=== PATIENT | female | born 1990 | race Caucasian/White ===

== ENCOUNTER 2020-03-14 14:35 | Emergency (ER) | payer BC, SELFPAY ==
[2020-03-14 14:40] VITALS: BP 124/63; PULSE 89; RESP 16; TEMP 36.8; O2SAT 99; BMI 37.5
--- NOTE | 2020-03-14 15:11 | HMH.EDUTC ---
[facility] [place] Clinical Impression: Dog bite Qualifiers: Encounter type: initial encounter Qualified Code(s): W54.0XXA - Bitten by dog, initial encounter Disposition: Home, Self-Care Condition on Discharge: Good Instructions: DI for Dog Bite, DI for Animal Bites, Amoxicillin and Clavulanic Acid Additional Instructions: Keep wound area clean and dry *Watch area for signs of infection including but not limited too redness, drainage, swelling, streaks etc if seen follow up with Family doctor immediate Return if needed Follow up with Family Doctor if needed Straight to ER if any life threatening symptoms Prescriptions: Amoxicillin/Potassium Clav [Augmentin 875-125 Tablet] 1 tab PO Q12H 7 Days #14 tab Prescription Printed Referrals: Kiel Harden MD [Primary Care Provider] - As needed Time of Disposition: 15:26 Medical Decision Making - Dylon Inquiry Pt receiving controlled substance: No Dylon was queried for this patient: No Vital Signs: 03/14/20 14:40 Temperature 98.3 F Temperature Source Oral Pulse Rate [Left] 89 Respiratory Rate 16 Blood Pressure [Right Arm] 124/63 Blood Pressure Mean [Right Arm] 83 Blood Pressure Source [Right Arm] Automatic Cuff Blood Pressure Position [Right Arm] Sitting 02 Sat by Pulse Oximetry 99 Oxygen Delivery Method Room Air Medical Decision Narrative: Discussed injections for possible Rabies exposure with patient and patient declined series of injections at this time, Reports that she will discuss with neighbor about quarantining the dog and watching it for 10 days, Patient educated that small puncture wound on hand is left open due to contaminated bite and importance of keeping wound clean and oral antibiotics [facility] [place] - General Stated complaint: dog bite Time Seen by Provider: 03/14/20 15:11 Mode of Arrival: Ambulatory Source of Information: Patient Limitations: No Limitations Description of Symptoms (Recalled from Triage Doc. by RN): Dog bite left hand HEENT Symptoms (Recalled from RN notes): No Resp Symptoms (Recalled from RN notes): No Skin Symptoms (Recalled from RN notes): Yes MS Symptoms (Recalled from RN notes): No Functional Status (Recalled from RN notes): stable - History of Present Illness Provider Complaint: Patient states that earlier her neighbors dog bite her on her left hand States that she isnt sure about the dogs vaccines States that she immediately cleaned the wound area and applied antibiotic ointment States that she is unsure when her last tetanus was and came in to see if she needed antibiotics to help prevent infection - Related Data Previous Rx's Medication Instructions Recorded Amoxicillin/Potassium Clav 1 tab PO Q12H 7 Days #14 tab 03/14/20 [Augmentin 875-125 Tablet] Allergies Allergy/AdvReac Type Severity Reaction Status Date / Time No Known Allergies Allergy Unverified 07/07/17 14:48 - Worker's Comp Is this a Worker's Comp case?: No Is this an [facility] Worker's Comp?: No Is this a [facility] Worker's Comp?: No [facility] History - Hepatitis A Screen Drug use history?: No High risk sexual behaviors?: No History of sexually transmitted infection?: No Currently employed?: No Childcare worker?: No Do you have indoor plumbing?: Yes Do you have electricity?: Yes Attestation statement:: This patient has been screened for Hepatitis A risk factors. I have reviewed the patient's past medical history: Yes Medical History: Denies:: Cancer, Diabetes Mellitus Type 1, Diabetes Mellitus Type 2, Internal Pacemaker, MRSA Other Surgeries: No: Pacemaker Amputation: No Fractures: No - Social History Alcohol Intake: never Occupational Status: employed Housing: house Household Members: family ROS Obtained: Yes All systems reviewed & no additional complaints, Yes Systems reviewed as appropriate & no additional complaints - Constitutional Constitutional: Reports system reviewed and no additional complaints, except as docu - E
[2020-03-14 15:41] VITALS: BP 124/63; PULSE 89; RESP 16; TEMP 36.8; O2SAT 99
== END 2020-03-14 15:42 | disposition home or self-care (01) ==
PROVIDERS: Emergency Provider Nurse Practitioner; PCP Internal Medicine Adolescent Medicine
DX: S61.432A Puncture wound without foreign body of left hand, initial encounter (principal); W54.0XXA Bitten by dog, initial encounter; Z23 Encounter for immunization
CPT/HCPCS: 90471; 90715; 96372; 99201

== ENCOUNTER → 2022-04-10 13:28 | Outpatient (CLI) | payer BC, SELFPAY ==
--- NOTE | 2022-04-10 13:34 | US_ITS ---
FINAL REPORT CLINICAL HISTORY: MASS OF RIGHT LOWER LAG FINDINGS: US EXTREMITY, NONVASCULAR, LIMITED, ANATOMIC SPECIFIC Limited sonographic images were obtained of the soft tissues of the right knee. Along the lateral border is a predominately cystic ovoid nodule measuring 1.9 cm. This demonstrates minimal internal nodularity and vascularity. IMPRESSION: 1.9 cm nodule with minimal internal nodularity and vascularity. Recommend correlation with MRI. Reviewed, Interpreted and Dictated by Julius Hernandez MD Transcribed by Osmar Alamo Authenticated and . [facility]
== END ==
LOC: RAD 13:29
PROVIDERS: PCP Internal Medicine Adolescent Medicine; Visit Provider Nurse Practitioner Family
DX: R22.41 Localized swelling, mass and lump, right lower limb (principal)
CPT/HCPCS: 76882

== ENCOUNTER → 2022-04-21 14:52 | Outpatient (CLI) | payer BC, SELFPAY ==
--- NOTE | 2022-04-21 14:56 | MR_ITS ---
FINAL REPORT CLINICAL HISTORY: MASS OF RIGHT LOWER LEG. lump on lower leg x1 year. put marker on leg. 17ml prohance given. FINDINGS: Multiplanar MR imaging of the right lower leg was performed with and without contrast. There is no evidence of fracture, bone bruise or marrow edema. No bony mass is identified. The musculature is intact. No localized soft tissue inflammation is identified. There is an 18 mm lobulated, well-circumscribed nodule in the lateral subcutaneous tissues of the proximal lower leg. This demonstrates mild peripheral enhancement and appears to represent fluid signal. IMPRESSION: Lobular well-circumscribed nodule at the area of interest favors a cyst over cystic neoplasm. Reviewed, Interpreted and Dictated by Felipe Washington III, MD Transcribed by Osmar Alamo Authenticated and [facility]
== END ==
LOC: RAD 14:53
PROVIDERS: PCP Internal Medicine Adolescent Medicine; Visit Provider Nurse Practitioner Family
DX: R22.41 Localized swelling, mass and lump, right lower limb (principal)
CPT/HCPCS: 73720; A9576

== ENCOUNTER 2023-10-16 07:53 | Outpatient (CLI) | payer BC, SELFPAY ==
[2023-10-16 08:10] LABS: Basophils # 0.1 K/mm3 (0-0.2); Basophils % 1.1 % (0.1-2.0); Eosinophils # 0.1 K/mm3 (0.0-0.4); Eosinophils % 1.2 % (0.1-12.0); Hemoglobin 14.2 g/dL (12.2-16.2); Lymphocytes # 1.6 K/mm3 (0.7-4.5); Lymphocytes % 30.3 % (10-50); Mean Corpuscular HGB Conc 32.9 g/dL (31.8-35.4); Mean Corpuscular Hemoglobin 30.5 pg (27.0-31.2); Mean Corpuscular Volume 92.8 fl (81-99); Mean Platelet Volume 7.5 fl (7.4-10.4); Monocytes # 0.3 K/mm3 (0.1-1.0); Monocytes % 6.2 % (1.7-9.3); Neutrophils # 3.1 K/mm3 (1.8-7.8); Neutrophils % 61.2 % (37.0-80.0); Platelet Count 311 K/mm3 (142-424); Red Blood Count 4.64 M/mm3 (4.20-5.40); Red Cell Distribution Width 12.4 % (11.5-17.5); White Blood Count 5.1 K/mm3 (4.8-10.8)
[2023-10-16 08:56] LABS: Alanine Aminotransferase 18 U/L (12-78); Albumin Level 4.1 g/dl (3.5-5.0); Albumin/Globulin Ratio 1.6 (1.1-1.8); Alkaline Phosphatase 72 U/L (38-126); Anion Gap 8.9 mEq/L (5-15); Aspartate Amino Transferase 25 U/L (14-36); Bilirubin,Total 0.4 mg/dl (0.2-1.3); Blood Urea Nitrogen 13 mg/dl (7-17); Calcium 9.3 mg/dl (8.4-10.2); Carbon Dioxide 28 mmol/L (22.0-30.0); Chloride 107 mmol/L (98-107); Cholesterol 193 mg/dl (140-200); Estimated Glomerular Filt Rate 96 ml/min (>60); GFR (African American) 116 ML/MIN (>60); Globulin 2.6 g/dL (1.3-3.2); Glucose 101 mg/dl (74-100); HDL Cholesterol 32 mg/dl (40-60); Potassium 3.9 mmoL/L (3.5-5.1); Sodium 140 mmol/L (136-145); Total Protein,Serum 6.7 g/dl (6.3-8.2); Triglycerides 79 mg/dl (30-150); VLDL Cholesterol 16 mg/dL (0-40)
[2023-10-16 09:07] LABS: Direct LDL Cholesterol 118.36 mg/dL (100-129)
[2023-10-16 09:26] LABS: Thyroid Stimulating Hormone 1.48 uIU/mL (0.465-4.68)
[2023-10-16 09:45] LABS: Vitamin B12 288 pg/mL (239-931)
== END 2023-10-16 23:59 ==
LOC: LAB 07:53
PROVIDERS: PCP Internal Medicine Adolescent Medicine; Visit Provider Nurse Practitioner Family
DX: R73.09 Other abnormal glucose (principal); R53.83 Other fatigue; E55.9 Vitamin D deficiency, unspecified; Z79.899 Other long term (current) drug therapy
CPT/HCPCS: 36415; 80053; 80061; 82306; 82607; 84443; 85025

== ENCOUNTER 2023-10-22 13:18 | Emergency (ER) | payer BC, SELFPAY ==
[2023-10-22 13:40] VITALS: BP 124/86; PULSE 96; RESP 19; TEMP 36.9; O2SAT 98; BMI 34.2
--- NOTE | 2023-10-22 13:52 | ED_ITS ---
Discharge Plan Disposition Patient Disposition: Home, Self-Care Condition: Good Prescriptions Prescriptions: New amoxicillin 875 mg tablet 875 mg PO Q12H 10 Days Qty: 20 0RF ondansetron 4 mg tablet,disintegrating 4 mg PO Q8H PRN (Reason: nausea and vomiting) Qty: 10 0RF No Action buspirone 5 mg tablet 5 mg PO BID Patient Comments: TAKE 1 TABLET BY MOUTH TWICE DAILY bupropion HCl 150 mg tablet sustained-release 12 hr 150 mg PO BID Patient Comments: TAKE 1 TABLET BY MOUTH TWICE DAILY cyanocobalamin (vitamin B-12) 1,000 mcg/mL solution 1,000 mcg IM WEEKLY Patient Comments: USE DIRECTED IN THE MUSCLE ONCE WEEKLY Referrals Follow up/Referrals: Kiel Harden MD [Primary Care Provider] - See instructions Activity Restrictions/Add. Instructions Additional Instructions/Restrictions: *Monitor Temp, Over the counter Motrin or Tylenol as directed/as needed Tylenol every 4 hours and Motrin every 6 hours (as long as your family doctor has told you that you can take it) for fever or pain. and straight to ER if unable to lower temp less than 101.0 after medication given *Warm salt water gargles may help to soothe the throat *Throat Lozenges? *Warm fluids like tea with honey may help to soothe the throat? *Sleep elevated *Humidifier/Vaporizer *Take medication as prescribed and drink plenty of fluids Follow up IMMEDIATELY for new or worsening symptoms or no Noticeable improvement over the next 48-72 hours. 911 for difficulty breathing or swallowing Clinical Impressions Clinical Impression: Otitis media Instructions Patient Instructions: Middle Ear Infection, Amoxicillin Discharge ED Provider: Leslye Vázquez [facility] [place] HPI General Stated complaint: body aches,fever, cough Mode of Arrival: Ambulatory Source of Information: Patient Limitations: No Limitations Time Seen by Provider: 10/22/23 13:54 Description of Symptoms (Recalled from Triage Doc. by RN): PATIENT C/O COUGH, FEVER, VOMITING, EAR ACHE AND HEADACHE SINCE YESTERDAY HEENT Symptoms (Recalled from RN notes): Yes Resp Symptoms (Recalled from RN notes): Yes Skin Symptoms (Recalled from RN notes): No MS Symptoms (Recalled from RN notes): No Functional Status (Recalled from RN notes): WNL History of Present Illness Provider Complaint: Patient states that she has been having pain and pressure in her right ear and yesterday she started with headache, cough upset stomach and fever States today she wasnt feeling any better so she came in Related Data Home Medications Medication Instructions Recorded Confirmed bupropion HCl 150 mg tablet,12 hr 150 mg PO BID 10/22/23 10/22/23 sustained-release buspirone 5 mg tablet 5 mg PO BID 10/22/23 10/22/23 cyanocobalamin (vitamin B-12) 1,000 mcg IM WEEKLY 10/22/23 10/22/23 1,000 mcg/mL injection solution Previous Rx's Medication Instructions Recorded amoxicillin 875 mg tablet 875 mg PO Q12H 10 days #20 tabs 10/22/23 ondansetron 4 mg disintegrating 4 mg PO Q8H PRN nausea and 10/22/23 tablet vomiting #10 tabs Allergies Allergy/AdvReac Type Severity Reaction Status Date / Time No Known Allergies Allergy Verified 10/22/23 13:51 Worker's Comp Is this a Worker's Comp case?: No [facility] Disclaimer: The information contained in this section may have been updated after the patient was seen, as this information can be updated by other users. Medical History (Updated 10/22/23 @ 14:07 by Leslye Vázquez APRN) Depression Anxiety Urinary tract infection Migraine Social History Smoking Status: Unknown if ever smoked second hand exposure: No alcohol intake: never current occupational status: employed Travel in the last 8 weeks: None household members: family housing: house current occupational exposures/hazards: No caffeine: Yes ROS Obtained: Yes All systems reviewed & no additional complaints except as documented and Yes Systems reviewed as appropriate & no additional complaints except as documented Constitutional Constitutional: Reports system reviewed and no additional complaints, except as documented, Reports as per HPI, Reports body ache, Reports fever(s) and Reports headache(s) ENT Ears, Nose, Mouth, and Throat: Reports system reviewed and no additional complaints, except as documented, Reports as per HPI, Reports otalgia, Reports headache(s) and Reports nasal congestion Cardiovascular Cardiovascular: Reports system reviewed and no additional complaints, except as documented and Reports as per HPI Respiratory Respiratory: Reports system reviewed and no additional complaints, except as documented, Reports as per HPI and Reports cough Gastrointestinal Gastrointestingal: Reports system reviewed and no additional complaints, except as documented, as per HPI, nausea and vomiting Genitourinary Female Genitourinary: Reports system reviewed and no additional complaints, except as documented and Reports as per HPI Neurologic Neurologic: Reports headache(s) Physical Exam General General appearance: alert and in no apparent distress ENT ENT exam: Present mucous membranes moist Expanded ENT Exam TM/Canal exam: Right TM: erythema and bulging Nose exam: Absent sinus tenderness Throat exam: Present normal inspection Respiratory Respiratory exam: Present normal lung sounds bilaterally; Absent respiratory distress or wheezes Cardiovascular Cardiovascular exam: Present regular rate, normal rhythm and normal heart sounds Neurological Exam Neurological exam: Present alert, oriented X3 and normal gait Medical Decision Making Dylon Inquiry Pt receiving controlled substance: No Dylon was queried for this patient: No Vital Signs: 10/22/23 13:40 Temperature 98.5 F Temperature Source Oral Pulse Rate [Left Brachial] 96 H Respiratory Rate 19 Blood Pressure [Left Arm] 124/86 Blood Pressure Mean [Left Arm] 98 Blood Pressure Source [Left Arm] Automatic Cuff Blood Pressure Position [Left Arm] Sitting 02 Sat by Pulse Oximetry 98 Oxygen Delivery Method Room Air Lab Data Lab results reviewed: Yes I reviewed the patient's lab results.
[2023-10-22 14:02] LABS: UTC Influenza A Antigen Negative (Negative); UTC Influenza B Antigen Negative (Negative)
[2023-10-22 14:04] VITALS: BP 124/86; PULSE 96; RESP 19; TEMP 36.9; O2SAT 98
== END 2023-10-22 14:14 | disposition home or self-care (01) ==
PROVIDERS: Emergency Provider Nurse Practitioner; PCP Internal Medicine Adolescent Medicine
DX: H66.91 Otitis media, unspecified, right ear (principal); R51.9 Headache, unspecified; R05.9 Cough, unspecified; R11.0 Nausea; R50.9 Fever, unspecified
CPT/HCPCS: 87804; 99204; 99212; G0463

== ENCOUNTER 2025-04-30 17:49 | Emergency (ER) | payer BC, SELFPAY ==
--- OUTSIDE RECORDS SUMMARY | 2005-11-19 | XMS_ITS | Encounter Summary ---
Author Organization [facility] Address [address] [place] [address] Care Team Providers Care Team Truck Driver Name Role Phone Unavailable Primary Care Provider Unavailabl e Encounter Details Date Type Department Care Team (Late st Contact Info) Description 11/19/[address] [facility] Division of Pediatric General and Thoracic Surgery [address] [place] [phone] Social History Tobacco Use Types Packs/Day Years Used Date Smoking Tobacco: Never Assessed Comments Unknown Sex and Gender Information Value Date Recorded Sex Assigned at Not on file Legal Sex Female 5:18 AM EST Gender Identity Not on file Sexual Orientation Not on file documented as of this encounter Plan of Treatment Not on file documented as of this encounter Visit Diagnoses Not on filedocumented in this encounter
[2025-04-30] VITALS (8 sets, daily range): BP systolic 98–133; BP diastolic 48–88; PULSE 74–94; RESP 18–20; TEMP 36.7–36.9; O2SAT 95–100; BMI 34.7
--- OUTSIDE RECORDS SUMMARY | 2025-04-30 17:56 | XMS_ITS | Clinical Summary ---
Author Organization [facility] Address [address] [place] [id number] Care Team Providers Care Aircraft Structural Repairer Name Role Phone Unavailable Primary Care Provider Unavailabl e Source Comments [facility] is fully rolled out with thefollowing exceptions:General Clinical Research [facility] Social History Tobacco Use Types Packs/Day Years Used Date Smoking Tobacco: Never Assessed Comments Unknown Sex and Gender Information Value Date Recorded Sex Assigned at Not on file Legal Sex Female 5:18 AM EST Gender Identity Not on file Sexual Orientation Not on file Plan of Treatment Health Maintenance Due Date Last Done Comments MMR IMMUNIZATION (1 of 1 - S tandard series) 1990 DTAP/Tdap/Td IMMUNIZATION (1 - Tdap) 01/05/1996 VARICELLA IMMUNIZATION (1 of 2 - 13+ 2-dose series) 2002 HEPATITIS B IMMUNIZATION (1 of 3 - 19+ 3-dose series) 01/05/2008 HPV IMMUNIZATION (1 - 3-dose SCDM series) 01/05/2016 AMB SEASONAL FLU VACCINE (#1) 03/20/2025 COVID-19 Vaccine ( - 2023-2 5 season) 2025 HIB IMMUNIZATION Aged Out No longer e ligible based on patient's age to complete this topic IPV IMMUNIZATION Aged Out No longer e ligible based on patient's age to complete this topic MCV4 IMMUNIZATION Aged Out No longer eligible based on patient's age to complete this topic MENINGOCOCCAL B VACCINE Aged Out No l onger eligible based on patient's age to complete this topic PNEUMOCOCCAL IMMUNIZATION Aged Out No longer eligible based on patient's age to complete this topic Respiratory Syncytial Virus (RSV) <20mo Aged Out No longer eligible b ased on patient's age to complete this topic
--- OUTSIDE RECORDS SUMMARY | 2025-04-30 17:56 | XMS_ITS | Clinical Summary ---
Author Organization [facility] Address [address] [place] [id number] Care Team Providers Care Skip Load Driver Name Role Phone Kiel Harden MD Primary Care Provider [phone] Allergies No known active allergies Medications Vit-Fe Fumarate-FA ( 27-1) 27-1 MG tablet tablet Take by mouth daily. Active ibuprofen (ADVIL,MOTRIN) 600 MG tablet Take 1 tablet by mouth every 6 (six) hours as needed for mild pain (1-3). 30 tablet 2 03/18/2016 Active Active Problems Problem Noted Date Diagnosed Date Normal labor 03/16/2016 Social History Tobacco Use Types Packs/Day Years Used Date Smoking Tobacco: Never Alcohol Use Standard Drinks/Week Comments No 0 (1 standard drink = 0.6 oz pur e alcohol) Abuse Screen Answer Date Recorded Unsafe at Home or Work/School Not on file Feels Threatened by Someone? Not on file 03/2023 Does Anyone Keep You from Co ntacting Others or Doint Things Outside the Home? Not on file 04/27/2023 Physical Sign of Abuse Present Not on file 1 Housing Stability Answer Date Recorded Current Living Arrangements Not on file 03/2023 Potentially Unsafe Housing Conditions Not on ron e 04/27/2023 Family and Community Support Answer Param e Recorded Help with Day-to-Day Activities Not on file 04/27/2023 Lonely or Isolated Not on file 04/27/2023 Employment Answer Date Recorded Do you want help finding or keeping work or a terri b? Not on file 04/27/2023 Disabilities Answer Date Recorded Concentrating, Remembering, or Making Decisions Difficulty Not on file 04/27/2023 Doing Errands Independently Difficulty Not on fi le 04/27/2023 Education Answer Date Recorded Help with school or training? Not on file Preferred Language Not on file 04/27/2023 Comments No Sex and Gender Information Value Date Recorded Sex Assigned at Not on file Legal Sex Female 12:45 PM EDT Gender Identity Not on file Sexual Orientation Not on file Last Filed Vital Signs Vital Sign Reading Time Taken Comments Blood Pressure 118/82 03/18/2016 8:00 AM EDT Pulse 82 03/18/2016 8:00 AM EDT Temperature 37.1 C (98.8 F) 03/18/2016 8:00 AM EDT Respiratory Rate 20 03/18/2016 8:00 AM EDT Oxygen Saturation - - Inhaled Oxygen Concentration - - Weight 98 kg (216 lb) 03/13/2016 11:35 PM EDT Height 154.9 cm (5' 1 ) 03/13/2016 11:35 PM EDT Body Mass Index 40.81 03/13/2016 11:35 PM EDT Plan of Treatment Health Maintenance Due Date Last Done Comments ANNUAL PHYSICAL 1989 Annual Gynecologic Pelvic an d Breast Exam 1989 HEPATITIS C SCREENING 1989 TDAP/TD VACCINES (1 - Tdap) 01/05/2008 INFLUENZA VACCINE 02/17/2025 Pneumococcal Vaccine 0-49 Aged Out No longer eligible based on patient's age to complete this topic Insurance [facility] Advance Directives * Full Code (Latest Code Status on File) Date Activated Date Inactivated Comments 03/16/2016 8:59 PM 03/18/2016 4:17 PM * Full Code Date Activated Date Inactivated Comments 03/16/2016 8:17 AM 03/16/2016 8:59 PM Care Teams Skip Load Driver Relationship Specialty Start Date End Date Kiel Harden MD [address] [facility] [address] [facility] [place] [id number] PCP - General Adolescent Medicine 03/05/16
--- OUTSIDE RECORDS SUMMARY | 2025-04-30 17:56 | XMS_ITS | Clinical Summary ---
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 Social History Tobacco Use Types Packs/Day Years Used Date Smoking Tobacco: Never Assessed Comments Unknown Sex and Gender Information Value Date Recorded Sex Assigned at Not on file Legal Sex Female 6:23 PM EDT Gender Identity Not on file Sexual Orientation Not on file Plan of Treatment Health Maintenance Due Date Last Done Comments [facility]-Depression Screening 1989 [facility]-HIV Screening 1989 [facility]-Hepatitis C Screening 1989 [facility]-Infant/Child/Adol SDOH Screenings 1989 [facility]-Varicella Vaccines (1 of 2 - 13+ 2-dose series) 2002 [facility]- SDOH Screenings 2007 [facility]-Adult SDOH Screenings 2007 [facility]-Hepatitis B Vaccines (1 of 3 - 19+ 3-dose series) 01/05/2008 [facility]-Pap Smear 2010 HPV Vaccines (1 - 3-dose SCDM series) 01/05/2016 [facility]-Cervical Cancer Screening 2019 [facility]-HPV/Cotest 2019 [id number] Vaccine ( season) 2025 07/15/2021, 09/12/2020, 08/15/2020 [facility]-Influenza Vaccine (#1) 03/20/202505/30, 04/27/2018, 03/14/2016 [facility]-DTaP,Tdap,and Td Vaccines (3 - Td or Tdap) 03/14/2030 03/14/2020, 03/14/2016 [facility]-Zoster Vaccines (1 of 2) 2039 [facility]-Hepatitis A Vaccines Aged Out 06/25/2018 No longer eligible based on patient's age to complete this topic [facility]-HIB Vaccines Aged Out No longer e ligible based on patient's age to complete this topic [facility]-IPV Vaccines Aged Out No longer e ligible based on patient's age to complete this topic [facility]-Pneumococcal Vaccine: Pediatrics (0 to 5 Years) and At-Risk Patients (6 to 49 Years) Aged Out No longer eligible b ased on patient's age to complete this topic [facility]-Rotavirus Vaccines Aged Out No lo nger eligible based on patient's age to complete this topic
--- OUTSIDE RECORDS SUMMARY | 2025-04-30 17:56 | XMS_ITS | Clinical Summary ---
Author Organization [facility] Address [address] [place] [phone] Phone Care Team Providers Care Supervisor Chemical Name Role Phone Unavailable Primary Care Provider Unavailabl e Social History Tobacco Use Types Packs/Day Years Used Date Smoking Tobacco: Never Assessed Comments Unknown Sex and Gender Information Value Date Recorded Sex Assigned at Not on file Legal Sex Female 7:25 AM EDT Gender Identity Not on file Sexual Orientation Not on file Plan of Treatment Health Maintenance Due Date Last Done Comments Annual Wellness Exam 01/05/1992 DTaP/TDaP/Td (1 - Tdap) 01/05/2008 Hepatitis B Vaccine (1 of 3 - 19+ 3-dose series) 01/05/2008 Cervical Cancer Screening 2010 Pap Smear 2010 HPV/Pap Cotest 2019 COVID-19 Vaccine ( - 2023-2 5 season) 2025 Influenza Vaccine (#1) 2025 Meningococcal B Vaccine Aged Out No l onger eligible based on patient's age to complete this topic Pneumococcal Vaccine 0-49 Aged Out No longer eligible based on patient's age to complete this topic Insurance [facility]
--- OUTSIDE RECORDS SUMMARY | 2025-04-30 17:56 | XMS_ITS | Encounter Summary ---
Author Organization [facility] Address [address] [place] [address] Care Team Providers Care Starting Sheet Tank Operator Name Role Phone Unavailable Primary Care Provider Unavailabl e Encounter Details Date Type Department Care Team (Latest Contact Info) Description 11/11/2022 [facility] Orders [facility] [address] [place] [phone] Kiel Harden MD [address] [place] [address] Histoplasmosis (Primary Dx) Social History Tobacco Use Types Packs/Day Years Used Date Smoking Tobacco: Never Assessed Comments Unknown Sex and Gender Information Value Date Recorded Sex Assigned at Not on file Legal Sex Female 6:23 PM EDT Gender Identity Not on file Sexual Orientation Not on file documented as of this encounter Plan of Treatment Not on file documented as of this encounter Visit Diagnoses Diagnosis Histoplasmosis- Primary documented in this encounter
--- NOTE | 2025-04-30 18:11 | XR_ITS ---
PROCEDURE INFORMATION: Exam: XR Chest Exam date and time: 04/30/2025 6:51 PM Age: 35 years old Clinical indication: Pain; Shortness of breath; Chest pressure; Additional info: Chest pain/shortness of breath TECHNIQUE: Imaging protocol: Radiologic exam of the chest. Views: 2 views. COMPARISON: No relevant prior studies available. FINDINGS: Lungs: 1.5 cm nodular opacity in the right lung base, which is not confidently seen on the lateral view. No acute lung consolidations. Pleural spaces: Unremarkable. No pleural effusion. No pneumothorax. Heart/Mediastinum: Unremarkable. No cardiomegaly. Bones/joints: Unremarkable. IMPRESSION: 1. 1.5 cm nodular opacity in the right lung base, which is not confidently seen on the lateral view. Differential diagnosis would include a nodule outside the lungs, true pulmonary nodule, or partially calcified granuloma. Correlation with nonemergent chest CT is recommended. 2. No acute lung consolidations.
--- NOTE | 2025-04-30 18:15 | ED_ITS ---
Discharge Plan Disposition Patient Disposition: Home, Self-Care Condition: Good Prescriptions Prescriptions: No Action desvenlafaxine succinate [Pristiq] 25 mg tablet extended release 24 hr 25 mg PO DAILY Qty: 30 2RF buspirone 10 mg tablet 10 mg PO TID Qty: 90 2RF lisdexamfetamine [Vyvanse] 40 mg capsule 40 mg PO DAILY Qty: 30 0RF cyanocobalamin (vitamin B-12) 1,000 mcg/mL solution 1,000 mcg IM WEEKLY Patient Comments: USE DIRECTED IN THE MUSCLE ONCE WEEKLY ondansetron 4 mg tablet,disintegrating 4 mg PO Q8H PRN (Reason: nausea and vomiting) Qty: 10 0RF Referrals Follow up/Referrals: Kiel Harden MD [Primary Care Provider, Internal Medicine] - See instructions Activity Restrictions/Add. Instructions Additional Instructions/Restrictions: Use the MDI inhaler 2 puffs every 4 hours for the next couple days to help with your breathing. Return to the emergency department if you have any significant acute worsening shortness of breath, worsening chest pain or if you have any other acute concerns. You can use Tylenol Motrin as well. Clinical Impressions Clinical Impression: Shortness of breath Print Language Print Language: Greenlandic Discharge ED Provider: Rachel Blackman Adult HPI General Chief complaint: Shortness of Breath/Dyspnea Stated complaint: soa, numbness in arms Time Seen by Provider: 04/30/25 17:56 Mode of Arrival: Ambulatory Source of Information: Patient Description of Symptoms (Recalled from ER Triage Doc. by RN): pt reports intermittent shortness of breath for a week. states her arms and face feel tingly @ times. hx of anxiety. not coughing History of Present Illness HPI narrative: Patient is an otherwise healthy 35-year-old female who presented to the emergency department with shortness of breath for a week. Patient reports pleuritic pain. Denies any chest pain. Patient denies any recent fevers. Patient denies any abdominal pain nausea vomiting or diarrhea. Patient denies any recent trauma or falls. Patient denies any recent long travel. Patient denies any history of blood clots. Patient denies any other hemoptysis prior cancer history. Patient also reports intermittent tingling in her hands as well as her face. Patient denies a headache, vision changes numbness or weakness. Related Data Home Medications ?Medication ?Instructions ?Recorded ?Confirmed cyanocobalamin (vitamin B-12) 1,000 mcg IM WEEKLY 11/1005/03/25 1,000 mcg/mL injection solution Previous Rx's ?Medication ?Instructions ?Recorded ondansetron 4 mg disintegrating 4 mg PO Q8H PRN nausea and 10/22/23 tablet vomiting #10 tabs buspirone 10 mg tablet 10 mg PO TID #90 tabs desvenlafaxine succinate 25 mg 25 mg PO DAILY #30 tabs 03/29/25 tablet,extended release 24 hr (Pristiq) lisdexamfetamine 40 mg capsule 40 mg PO DAILY #30 caps 05/03/25 (Vyvanse) Allergies Allergy/AdvReac Type Severity Reaction Status Date / Time No Known Allergies Allergy Verified 05/03/25 11:07 [facility] Disclaimer: The information contained in this section may have been updated after the patient was seen, as this information can be updated by other users. Medical History Depression Anxiety Urinary tract infection Migraine Social History Smoking Status: Never smoker second hand exposure: No alcohol intake: never current occupational status: employed Travel in the last 8 weeks?: None household members: family housing: house current occupational exposures/hazards: No caffeine: Yes ROS Obtained: Yes All systems reviewed & no additional complaints except as documented and Yes Systems reviewed as appropriate & no additional complaints except as documented Physical Exam General General appearance: alert and in no apparent distress Head Head exam: atraumatic, normocephalic and normal inspection Eye Eye exam: Present normal appearance, PERRL and EOMI; Absent scleral icterus ENT ENT exam: Present normal exam and normal external ear exam Neck Neck exam: Present normal inspection and full ROM Chest Chest inspection: Present normal inspection and symmetric chest wall rise Respiratory Respiratory exam: Present normal lung sounds bilaterally; Absent respiratory distress or wheezes Cardiovascular Cardiovascular exam: Present regular rate, normal rhythm and normal heart sounds Abdominal Exam Abdominal exam: Present soft and distention; Absent tenderness, guarding or rebound Extremities Exam Extremities exam: Present normal inspection and full ROM Back Exam Back exam: Present normal inspection and full ROM Neurological Exam Neurological exam: Present alert, oriented X3, CN II-XII intact, normal gait and reflexes normal; Absent motor sensory deficit Psychiatric Psychiatric exam: Present normal affect and normal mood Skin Skin exam: Present warm and dry Medical Decision Making Medical Records Medical records reviewed: Yes I reviewed the patient's medical records. Screening: Per USPSTF and CDC recommendations, given the prevalence of disease in our region, it is our hospital?s policy to screen for HIV and viral Hepatitis for all patients aged 18 and over and those with ongoing risk factors. [place] Inquiry Pt receiving controlled substance: No Vital Signs: 04/30/25 17:55 04/30/25 18:33 04/30/25 19:15 Temperature 98.4 F Temperature Source Oral Pulse Rate 79 84 Pulse Rate [Right] 94 H Respiratory Rate 18 Blood Pressure 111/57 L Blood Pressure [Right Arm] 133/88 Blood Pressure Mean 75 Blood Pressure Mean [Right Arm] 103 Blood Pressure Source Blood Pressure Position 02 Sat by Pulse Oximetry 100 100 100 Oxygen Delivery Method Room Air Room Air 04/30/25 19:16 04/30/25 19:16 04/30/25 19:24 Temperature Temperature Source Pulse Rate 86 Pulse Rate [Right] Respiratory Rate Blood Pressure 116/57 L Blood Pressure [Right Arm] Blood Pressure Mean 66 Blood Pressure Mean [Right Arm] Blood Pressure Source Blood Pressure Position 02 Sat by Pulse Oximetry 100 100 Oxygen Delivery Method Room Air 04/30/25 19:31 04/30/25 20:01 04/30/25 21:29 Temperature 98.0 F Temperature Source Oral Pulse Rate 80 74 74 Pulse Rate [Right] Respiratory Rate 20 Blood Pressure 98/48 L 109/53 L 100/60 L Blood Pressure [Right Arm] Blood Pressure Mean 59 60 Blood Pressure Mean [Right Arm] Blood Pressure Source Automatic Cuff Blood Pressure Position Sitting 02 Sat by Pulse Oximetry 99 95 Oxygen Delivery Method Room Air Lab Data Lab results reviewed: Yes I reviewed the patient's lab results. Lab Results 04/30/25 18:33: WBC 8.7, RBC 4.51, Hgb 13.9, Hct 39.0, MCV 86.5, MCH 30.8, MCHC 35.6 H, RDW 11.4 L, Plt Count 313, MPV 9.2, Neut % (Auto) 57.4, Lymph % (Auto) 34.8, [place] % (Auto) 6.7, Eos % (Auto) 0.7, Baso % (Auto) 0.2, Neut # (Auto) 5.0, Lymph # (Auto) 3.0, [place] # (Auto) 0.6, Eos # (Auto) 0.1, Baso # (Auto) 0.0, D- Dimer 0.40, Sodium 137, Potassium 3.9, Chloride 102, Carbon Dioxide 27, Anion Gap 11.9, BUN 9, Creatinine 0.70, Estimated Creat Clear 151, Estimated GFR 95, Est GFR ( Amer) 115, Glucose 124 H, Calcium 9.5, Phosphorus 2.3 L, Magnesium 1.9, Total Bilirubin 0.5, AST 31, ALT 23, Alkaline Phosphatase 105, Troponin I < 0.01, Total Protein 6.7, Albumin 4.1, Globulin 2.6, Albumin/Globulin Ratio 1.6, Lipase 109, Serum HCG, Qual Negative, HCV Ab CHACHA w/Rflx PCR Qn Negative, HIV Ag/Ab Combo Qual Negative 04/30/25 20:40: Troponin I < 0.01 04/30/25 18:33 04/30/25 18:33 Orders (Tests/Meds): ED MEDICATIONS Discontinued Medications Generic Name Dose Route Start Last Admin Trade Name Freq PRN Reason Stop Dose Admin Acetaminophen 1,000 mg 04/30/25 18:13 04/30/25 18:42 Acetaminophen 500mg Tab PO 04/30/25 18:14 1,000 mg ONCE ONE Administration Albuterol/Ipratropium 3 ml 04/30/25 18:15 04/30/25 18:42 Ipratropium/Albuterol 3 Ml Neb 05/30/25 18:14 3 ml Q1H MELIZA Administration Albuterol/Ipratropium 2 puff 04/30/25 21:05 04/30/25 21:20 Combivent 20mcg/100mcg Respimat Inhaler IH 04/30/25 21:06 2 puff ONCE ONE Administration Ketorolac Tromethamine 30 mg 04/30/25 18:13 04/30/25 18:42 Ketorolac 30mg/Ml Vial IV 04/30/25 18:14 30 mg ONCE ONE Administration ORDERS Category Date Time Status CXR 2 view (NOT portable) [XR chest 2V] Stat Exams 04/30/25 18:11 Completed CBC w/Auto Diff [Complete Blood Count Auto Diff] Stat Lab 04/30/25 18:33 Completed CMP [Comprehensive Metabolic Panel] Stat Lab 04/30/25 18:33 Completed D-Dimer Stat Lab 04/30/25 18:33 Completed HCG Qualitative, Serum Stat Lab 04/30/25 18:33 Completed HIV Combo Stat Lab 04/30/25 18:33 Completed Hepatitis C Ab Qual. W/ RFX Stat Lab 04/30/25 18:33 Completed Lipase Stat Lab 04/30/25 18:33 Completed MAG [Magnesium] Stat Lab 04/30/25 18:33 Completed PHOS [Phosphorous] Stat Lab 04/30/25 18:33 Completed Trop I [Troponin I] Stat Lab 04/30/25 18:33 Completed Troponin I Q3H Lab 04/30/25 20:40 Completed Medical Decision Narrative: Patient is an otherwise healthy 35-year-old female who presented to the emergency department with shortness of breath for 1 week. On arrival, patient was hemodynamically stable with unremarkable vital signs. Differential included but not limited to: Pneumonia, asthma, pleural effusion, pneumothorax, pulmonary embolism, ACS/MA, electrolyte abnormalities, amongst others. Patient's labs were reviewed and interpreted by myself: CBC showed no leukocytosis, hemoglobin was stable. CMP is unremarkable. Magnesium and phosphorus is normal. Initial troponin less than 0.01, second troponin not felt to be indicated given patient's symptoms than 1 week long. D-dimer was less than 0.50. Chest x-ray was reviewed and interpreted by myself and showed no acute for consolidation, pneumothorax, pleural effusion or other acute cardiopulmonary process. EKG was reviewed and interpreted by myself and showed normal sinus rhythm without acute ST or T wave changes concerning for ischemia. Patient was given medications in the emergency department with symptomatic management. Patient reported improvement in her symptoms. At this time patient discharged in stable condition, return precautions were discussed. Critical Care Critical Care Time Critical Care Time: No
[2025-04-30 18:42] LABS: Hematocrit 39.0 % (37.0-47.0); Hemoglobin 13.9 g/dL (12.2-16.2); Immature Granulocytes % 0.2 %; Mean Corpuscular HGB Conc 35.6 g/dL (31.8-35.4); Mean Corpuscular Hemoglobin 30.8 pg (27.0-31.2); Mean Corpuscular Volume 86.5 fl (81-99); Nucleated Red Blood Cells % 0 %; Platelet Count 313 K/mm3 (142-424); Red Blood Count 4.51 M/mm3 (4.20-5.40); Red Cell Distribution Width-SD 36.0 fL; White Blood Count 8.7 K/mm3 (4.8-10.8)
[2025-04-30] MEDS: KETOROLAC 30MG/ML VIAL 30 MG IV (18:42)
[2025-04-30] MEDS: IPRATROPIUM/ALBUTEROL 3 ML NEB IH (18:42)
[2025-04-30] MEDS: ACETAMINOPHEN 500MG TAB 1000 MG PO (18:42)
[2025-04-30 18:50] LABS: Magnesium 1.9 mg/dl (1.6-2.3); Phosphorous 2.3 mg/dl (2.5-4.5)
[2025-04-30 18:51] LABS: Alanine Aminotransferase 23 U/L (12-78); Albumin Level 4.1 g/dl (3.5-5.0); Albumin/Globulin Ratio 1.6 (1.1-1.8); Alkaline Phosphatase 105 U/L (38-126); Anion Gap 11.9 mEq/L (5-15); Aspartate Amino Transferase 31 U/L (14-36); Bilirubin,Total 0.5 mg/dl (0.2-1.3); Blood Urea Nitrogen 9 mg/dl (7-17); Calcium 9.5 mg/dl (8.4-10.2); Carbon Dioxide 27 mmol/L (22.0-30.0); Chloride 102 mmol/L (98-107); Creatinine Clearance Estimated 151 mL/min (50-200); Creatinine,Serum 0.70 mg/dl (0.52-1.04); Estimated Glomerular Filt Rate 95 ml/min (>60); GFR (African American) 115 ML/MIN (>60); Globulin 2.6 g/dL (1.3-3.2); Glucose 124 mg/dl (74-100); Lipase 109 U/L (23-300); Potassium 3.9 mmoL/L (3.5-5.1); Sodium 137 mmol/L (136-145); Total Protein,Serum 6.7 g/dl (6.3-8.2)
[2025-04-30 18:55] LABS: D-Dimer 0.40 ug/mL (0.0-0.5)
[2025-04-30 18:57] LABS: HCG Qualitative, Serum Negative (Negative)
[2025-04-30 19:05] LABS: Troponin I < 0.01 ng/ml (0.00-0.034)
[2025-04-30 19:45] LABS: Hepatitis C Ab Qual. W/ RFX NEGATIVE (Negative)
[2025-04-30 21:20] LABS: Troponin I < 0.01 ng/ml (0.00-0.034)
[2025-04-30] MEDS: COMBIVENT 20MCG/100MCG RESPIMAT INHALER 2 PUFF IH (21:20)
== END 2025-04-30 21:33 | disposition home or self-care (01) ==
PROVIDERS: Emergency Provider Student in an Organized Health Care Education/Training Program; PCP Internal Medicine Adolescent Medicine
DX: R06.02 Shortness of breath (principal); R20.2 Paresthesia of skin
CPT/HCPCS: 71046; 80053; 83690; 83735; 84100; 84484; 84703; 85025; 85378; 86803; 87389; 96374; 99284; J1885